=== PATIENT | female | born 2005 | race Caucasian/White ===

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

== ENCOUNTER 2024-03-29 10:55 | Emergency (ER) | payer BC ==
[2024-03-29] MEDS ORDERED: SULFAMETH/TRIMETH 800/160 MG TABLET ONE (12:51)
== END 2024-03-29 14:11 | disposition home or self-care (01) ==
LOC: ER 10:55
DX: R52 Pain, unspecified (principal); Z53.21 Procedure and treatment not carried out due to patient leaving prior to being seen by health care provider